=== PATIENT | female | born 1965 | race Caucasian/White ===

== ENCOUNTER 2018-11-28 21:10 | Emergency (ER) | payer BC, OTHER ==
[~2018-11-28] VITALS: Ht 169 cm; Wt 120.0 kg
[2018-11-28] MEDS ORDERED: ONDANSETRON 4 MG/2 ML (SDV) Z0FRAN IVP ONE (21:30)
--- NOTE | 2018-11-28 21:34 | ED Syncope ---
General Chief Complaint: Head/Cervical Problems Stated Complaint: POSS LOC,HIT HEAD Source of Information: Patient, Family (daughter) Exam Limitations: No Limitations History of Present Illness Date Seen by Provider: Nov 28, 2018 Time Seen by Provider: 21:18 Initial Comments Patient presents to ER with her daughter by private conveyance with chief complaint that just prior to arrival she had a syncopal episode. She was carrying her grandchild into the house with her daughter and was talking to her daughter when she septic grandchild down and was bent over aching the shoes off of the child. She felt a flushed feeling manufacturing assistant the face like something was off. She then says she woke up with her daughter standing over her. Her daughter said she heard a thud and turned around and her mother who was just talking to her was laying on the ground with her eyes closed breathing making snoring sounds like she was asleep. There is no tremors or shaking like a seizure. 15 seconds later the patient was up talking again like nothing happened. Patient says she has an occasional cough because she is a smoker. She denies recreational drug use but does occasionally use alcohol with her last use being 2 drinks last night. He does not have a history of epilepsy. There is a history of syncopal episodes although she wasn't sure that this would've happened in the past about 6-8 months ago. She said she doesn't remember passing out this time. She just remembers having vivid, wild dreams. About a year ago the patient had some chest pain and was taken to the ER where she spent 3 days in the hospital having an extensive workup and was told by the stockroom inventory clerk she did not have any problem with her heart. She was on the monitor the whole time. She has never worn a Holter monitor however. She does not take any medications have a history of hypertension, coronary artery disease, diabetes, hyperlipidemia. She's not having any pain anywhere in her chest. She does hurt in the back of her head where she struck it and feels some mild nausea due to headache pain. Allergies and Home Medications Allergies Coded Allergies: No Known Drug Allergies (Unverified , 11/28/18) Patient Home Medication List Home Medication List Reviewed: Yes Review of Systems Constitutional: No chills, No diaphoresis, No fever, No malaise EENTM: No ear discharge, No hearing loss, No ear pain Respiratory: No cough, No short of breath Cardiovascular: No chest pain, No edema, No Hx of Intervention, No palpitations; syncope; No vascular heart diseas Gastrointestinal: No abdominal pain, No constipation, No diarrhea; nausea, vomiting Genitourinary: No discharge, No dysuria Musculoskeletal: No back pain, No joint pain Skin: No pruritus, No rash Past S[place]-Qijvth-Aznggb Hx Patient Social History Alcohol Use: Occasionally Uses Recreational Drug Use: No Smoking Status: Current Everyday Smoker Type Used: Cigarettes Recent Foreign Travel: No Contact w/Someone Who Travel: No Physical Exam Vital Signs Vital Signs - First Documented 11/28/18 21:48 Temp 36.5 Pulse 86 Resp 16 B/P (MAP) 144/80 (101) O2 Delivery Room Air Capillary Refill : Height, Weight, BMI Height: '" Weight: lbs. oz. kg; BMI Method: General Appearance: WD/WN, Mild Distress HEENT: PERRL/EOMI, TMs Normal, Normal ENT Inspection, Pharynx Normal, Moist Mucous Membranes, Other (tender to palpation over the occiput. Negative for Potter sign or raccoon eyes. 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 Norm as Tested Cranial Nerves: Normal Hearing, Normal Speech, PERRL Coordination/Gait: Normal Gait Motor/Sensory: No Motor Deficit, No Sensory Deficit Skin: Normal Color, Warm/Dry Progress/Results/Core Measures Results/Orders Lab Results Laboratory Tests Test 11/28/18 21:45 Range/Units White Blood Count 9.0 4.3-11.0 10^3/uL Red Blood Count 5.01 4.35-5.85 10^6/uL Hemoglobin 14.3 11.5-16.0 G/DL Hematocrit 44 35-52 % Mean Corpuscular Volume 87 80-99 FL Mean Corpuscular Hemoglobin 29 25-34 PG Mean Corpuscular Hemoglobin Concent 33 32-36 G/DL Red Cell Distribution Width 12.9 10.0-14.5 % Platelet Count 283 130-400 10^3/uL Mean Platelet Volume 9.9 7.4-10.4 FL Neutrophils (%) (Auto) 66 42-75 % Lymphocytes (%) (Auto) 24 12-44 % Monocytes (%) (Auto) 6 0-12 % Eosinophils (%) (Auto) 2 0-10 % Basophils (%) (Auto) 2 0-10 % Neutrophils # (Auto) 5.9 1.8-7.8 X 10^3 Lymphocytes # (Auto) 2.2 1.0-4.0 X 10^3 Monocytes # (Auto) 0.6 0.0-1.0 X 10^3 Eosinophils # (Auto) 0.2 0.0-0.3 10^3/uL Basophils # (Auto) 0.2 H 0.0-0.1 10^3/uL Sodium Level 142 135-145 MMOL/L Potassium Level 4.1 3.6-5.0 MMOL/L Chloride Level 103 98-107 MMOL/L Carbon Dioxide Level 26 21-32 MMOL/L Anion Gap 13 5-14 MMOL/L Blood Urea Nitrogen 14 7-18 MG/DL Creatinine 0.86 0.60-1.30 MG/DL Estimat Glomerular Filtration Rate > 60 BUN/Creatinine Ratio 16 Glucose Level 126 H 70-105 MG/DL Calcium Level 9.3 8.5-10.1 MG/DL Corrected Calcium 9.1 8.5-10.1 MG/DL Total Bilirubin 0.3 0.1-1.0 MG/DL Aspartate Amino Transf (AST/SGOT) 17 5-34 U/L Alanine Aminotransferase (ALT/SGPT) 19 0-55 U/L Alkaline Phosphatase 89 40-136 U/L Troponin I < 0.30 <0.30 NG/ML Pro-B-Type Natriuretic Peptide < 75.0 <75.0 PG/ML Total Protein 7.6 6.4-8.2 GM/DL Albumin 4.2 3.2-4.5 GM/DL My Orders Orders - MATTHEW HERRERA Ct Head/Cervical Spine Wo (11/28/18 21:27) Chest 1 View Ap/Pa Only (11/28/18 21:27) Ed Iv/Invasive Line Start (11/28/18 21:27) Cbc With Automated Diff (11/28/18 21:27) Comprehensive Metabolic Panel (11/28/18 21:27) Troponin I Fs (11/28/18 21:27) Probnp Fs (11/28/18 21:27) Continuous Ekg Monitoring (11/28/18 21:27) Ekg Tracing (11/28/18 21:27) Orthostatic Vital Signs (Adult (11/28/18 21:27) Ondansetron Injection (Zofran Injectio (11/28/18 21:30) Ketorolac Injection (Toradol Injection) (11/28/18 23:00) Medications Given in ED Current Medications Medications Dose Ordered Sig/Shivani Route Start Time Stop Time Status Last Admin Dose Admin Ondansetron HCl 4 mg ONCE ONCE IVP 11/28/18 21:30 11/28/18 21:31 DC 11/28/18 21:58 4 MG Vital Signs/I&O 11/28/18 11/28/18 11/28/18 11/28/18 21:48 21:54 21:56 22:02 Temp 36.5 Pulse 86 65 66 65 66 76 Resp 16 B/P (MAP) 144/80 (101) 129/66 (87) 148/78 (101) 129/66 (87) 148/78 (101) 123/63 (83) O2 Delivery Room Air Progress Progress Note : Time: 21:51 Progress Note Plan to give Zofran. If her CT scan is cleared and will give her some Toradol. Her story sounds vasovagal more so than cardiac related. We will obtain labs to include troponin and BNP and EKG, chest x-ray and a CT scan of the head and neck without IV contrast. We will use the [place] syncope score to help us determine outpatient follow-up. She says she is only here for 1 week so she can follow-up with her primary care doctor and stockroom inventory clerk on the [facility]. Orthostatic vital signs are unremarkable. If she has a negative troponin and BNP is in her [place] syncope score is negative two points. Very low risk. 0.7% risk of 30-day serious adverse event Initial ECG Impression Date: Nov 28, 2018 Initial ECG Impression Time: 21:30 Initial ECG Rate: 66 Initial ECG Rhythm: Normal Sinus Initial ECG Intervals: Normal Initial ECG Impression: Normal Initial ECG Comparisson: No Previous ECG Available Comment Normal sinus rhythm without clinically significant ST elevation or depression. Diagnostic Imaging Diagonstic Imaging: Xray Plain Films/CT/US/NM/MRI: chest (1v) Comments No acute cardiopulmonary processes on a 1 view chest x-ray. Reviewed: Reviewed by Me Diagonstic Imaging: CT (without IV contrast) Plain Films/CT/US/NM/MRI: c-spine, head Comments No acute intracranial hemorrhage, mass effect, midline shift or tumor. No calvarial fracture. No fracture or subluxation of the C-spine. Reviewed: Reviewed by Me Departure Impression Primary Impression: Syncope and collapse Additional Impressions: Headache Qualified Codes: G44.319 - Acute post-traumatic headache, not intractable Concussion Qualified Codes: S06.0X1A - Concussion with loss of consciousness of 30 minutes or less, initial encounter Disposition: 01 HOME, SELF-CARE Condition: Stable Departure-Patient Inst. Decision time for Depature: 22:57 Referrals: NO,LOCAL PHYSICIAN (PCP/Family) Primary Care Physician Patient Instructions: Concussion, Adult (DC), Syncope (Fainting) Add. Discharge Instructions: Tomorrow morning call and make a follow-up appointment with your primary care doctor and stockroom inventory clerk to go over the details of this episode. Discuss what other outpatient workup would be appropriate. For your headache you may use Tylenol 1000 g every 8 hours in addition to ibuprofen 800 mg every 8 hours. One tablet of Zofran every 6 hours under the tongue if you have nausea. Get some rest in a low stimuli environment for the next day or 2 until your mild concussion passes. If you have worsening symptoms such as nausea or headaches fatigue or drowsiness then you need to get sleep to put your brain to rest. All discharge instructions reviewed with patient and/or family. Voiced understanding. Scripts Ondansetron (Ondansetron Odt) 4 Mg Tab.rapdis 4 MG PO Q6H PRN for NAUSEA/VOMITING-1ST LINE, #8 TAB 0 Refills Prov: MATTHEW HERRERA 11/28/18 MATTHEW HERRERA Nov 28, 2018 21:34
[2018-11-28 21:54] VITALS: BP 129/66
[2018-11-28 21:56] VITALS: BP 148/78
[2018-11-28 22:01] LABS: BASOPHILS # (AUTO) 0.2 10^3/uL (0.0-0.1); BASOPHILS % (AUTO) 2 % (0-10); EOSINOPHILS # (AUTO) 0.2 10^3/uL (0.0-0.3); EOSINOPHILS % (AUTO) 2 % (0-10); HEMATOCRIT 44 % (35-52); HEMOGLOBIN 14.3 G/DL (11.5-16.0); LYMPHOCYTES # (AUTO) 2.2 X 10^3 (1.0-4.0); LYMPHOCYTES % (AUTO) 24 % (12-44); MEAN CORPUSCULAR HEMOGLOBIN 29 PG (25-34); MEAN CORPUSCULAR HGB CONC 33 G/DL (32-36); MEAN CORPUSCULAR VOLUME 87 FL (80-99); MEAN PLATELET VOLUME 9.9 FL (7.4-10.4); MONOCYTES # (AUTO) 0.6 X 10^3 (0.0-1.0); MONOCYTES % (AUTO) 6 % (0-12); NEUTROPHILS # (AUTO) 5.9 X 10^3 (1.8-7.8); NEUTROPHILS % (AUTO) 66 % (42-75); PLATELET COUNT 283 10^3/uL (130-400); RED CELL DISTRIBUTION WIDTH 12.9 % (10.0-14.5)
[2018-11-28 22:02] VITALS: BP_SYST 123; BP_SYST 129; BP_SYST 148; BP_DIAS 63; BP_DIAS 66; BP_DIAS 78
[2018-11-28 22:15] LABS: ALANINE AMINOTRANSFERASE 19 U/L (0-55); ALBUMIN 4.2 GM/DL (3.2-4.5); ALKALINE PHOSPHATASE 89 U/L (40-136); BILIRUBIN,TOTAL 0.3 MG/DL (0.1-1.0); BUN/CREATININE RATIO 16; CALCIUM 9.3 MG/DL (8.5-10.1); CARBON DIOXIDE 26 MMOL/L (21-32); CHLORIDE 103 MMOL/L (98-107); CREATININE SERUM 0.86 MG/DL (0.60-1.30); GFR ESTIMATED > 60; GLUCOSE 126 MG/DL (70-105); POTASSIUM 4.1 MMOL/L (3.6-5.0); SODIUM 142 MMOL/L (135-145); TOTAL PROTEIN 7.6 GM/DL (6.4-8.2)
[2018-11-28] MEDS ORDERED: ONDA4TAB11 PO (22:59)
[2018-11-28] MEDS ORDERED: KETOROLAC 30 MG/ML VIAL IVP ONE (23:00)
[2018-11-28 23:11] VITALS: BP 123/63
--- NOTE | 2018-11-29 07:52 | Diagnostic Imaging Report ---
INDICATION: Loss of consciousness and head injury Single PA view of the chest is obtained. COMPARISON: No previous study is available for comparison at this time. FINDINGS: Heart size and pulmonary vasculature are within normal limits, and the lungs are clear, bilaterally. IMPRESSION: Unremarkable chest. Dictated by: Dictated on workstation # [id number]
--- NOTE | 2018-11-29 07:54 | Diagnostic Imaging Report ---
PROCEDURE: CT head and CT cervical spine without contrast. TECHNIQUE: Multiple contiguous axial images were obtained through the brain and cervical spine without the use of intravenous contrast. Sagittal and coronal reformations through the cervical spine were then performed. Auto Exposure Controls were utilized during the CT exam to meet ALARA standards for radiation dose reduction. INDICATION: CT HEAD: CT images of the head were obtained. FINDINGS: Ventricles and sulci are within normal limits for size. There is no intracranial hemorrhage identified. There is no abnormal mass effect or shift of midline structures. IMPRESSION: Unremarkable CT of the head. CT CERVICAL SPINE: Multiple contiguous axial CT images of the cervical spine were obtained with sagittal and coronal reformatted images produced. FINDINGS: There is loss of normal cervical lordosis. Vertebral body heights and disc spaces are maintained. Prevertebral soft tissues are unremarkable, and there is no evidence of paraspinous hematoma. IMPRESSION: Loss of normal cervical lordosis which may be due to positioning or muscle spasm. There is, otherwise, no CT evidence of acute cervical spinal abnormality. Dictated by: Dictated on workstation # [id number]
== END 2018-11-28 23:11 | disposition home or self-care (01) ==
LOC: EDUNIT# 21:10 → ER FS 21:13
DX: S06.0X1A Concussion with loss of consciousness of 30 minutes or less, initial encounter (principal); R55 Syncope and collapse; R51 Headache; G40.909 Epilepsy, unspecified, not intractable, without status epilepticus; F17.210 Nicotine dependence, cigarettes, uncomplicated; W19.XXXA Unspecified fall, initial encounter
CPT/HCPCS: 36415; 70450; 71045; 72125; 80053; 83880; 84484; 85025; 93005